=== PATIENT | male | born 1965 | race African-American/Black ===

== ENCOUNTER 2021-02-28 05:01 | Emergency (ER) | payer OTHER | END 2021-02-28 09:35 | disposition home or self-care (01) | LOC: ER1 05:01 | DX: S01.81XA Laceration without foreign body of other part of head, initial encounter (principal); S06.0X0A Concussion without loss of consciousness, initial encounter; Y04.2XXA Assault by strike against or bumped into by another person, initial encounter | CPT/HCPCS: 12014; 12015; 70450; 73090; 99284; J2270; J7030 ==